=== PATIENT | female | born 1950 | race Two or more races ===

== ENCOUNTER 2017-08-24 15:17 | Emergency (ER) | payer OTHER ==
[~2017-08-24] VITALS: Ht 160 cm; Wt 86.2 kg
[~2017-08-24 15:17] MED LIST: AVAPRO300 MG; DIOVAN160 M1; DIOVAN160 M1 PO; DOXAZOSIN MESYLA4 MG; SYNTHROID50 MCG
== END 2017-08-24 17:16 | disposition home or self-care (01) ==
LOC: ER 15:17
DX: S60.412A Abrasion of right middle finger, initial encounter (principal); L03.011 Cellulitis of right finger; W26.8XXA Contact with other sharp object(s), not elsewhere classified, initial encounter; Y93.89 Activity, other specified; Y92.89 Other specified places as the place of occurrence of the external cause; Y99.8 Other external cause status